=== PATIENT | male | born 1955 | race Hispanic/Latino ===

== ENCOUNTER 2017-07-12 07:53 | Emergency (ER) | payer BC, MEDICARE ==
[2017-07-12] MEDS ORDERED: ACETAMINOPHEN 325 MG TAB ONE (08:35)
[2017-07-12 08:39] LABS: BASOPHILS % (AUTO) 0.5 % (0.0-5.0); EOSINOPHILS % (AUTO) 0.6 % (0.0-8.0); HEMATOCRIT 26.2 % (42-54); LYMPHOCYTES % (AUTO) 11.1 % (21.0-51.0); MEAN CORPUSCULAR HEMOGLOBIN 30.8 pg (27.0-33.0); MEAN CORPUSCULAR HGB CONC 32.8 g/dL (32.0-36.0); MEAN CORPUSCULAR VOLUME 93.8 fL (79-99); MONOCYTES % (AUTO) 14.1 % (3.0-13.0); NEUTROPHILS % (AUTO) 73.7 % (40.0-77.0); NUCLEATED RED BLOOD CELLS 0.1 % (0.0-0.19); PLATELET COUNT (AUTO) 303 K/uL (130-400); RED BLOOD CELL COUNT(AUTO) 2.79 MIL/uL (4.50-6.20); RED CELL DISTRIBUTION WIDTH 15.2 % (11.0-15.5); WHITE BLOOD COUNT (AUTO) 16.3 K/uL (4.8-10.8)
[2017-07-12 08:50] LABS: RAPID GROUP A STREP NEGATIVE (NEGATIVE)
[2017-07-12 08:52] LABS: INR 1.01 (0.85-1.15); PARTIAL THROMBOPLASTIN TIME 33.2 SEC (26.3-35.5); PROTHROMBIN TIME 10.6 SEC (9.6-11.6)
[2017-07-12 09:08] LABS: AMPHET/METH SCREEN,URINE NEGATIVE (NEGATIVE); BARBITURATE SCREEN, URINE NEGATIVE (NEGATIVE); BENZODIAZEPINES SCREEN,URINE NEGATIVE (NEGATIVE); CANNABINOID SCREEN,URINE NEGATIVE (NEGATIVE); COCAINE SCREEN,URINE NEGATIVE (NEGATIVE); OPIATE SCREEN,URINE NEGATIVE (NEGATIVE); PHENCYCLIDINE SCREEN,URINE NEGATIVE (NEGATIVE)
[2017-07-12] MEDS ORDERED: SODIUM CHLORIDE 0.9% 1000ML 1,000 ML IV ONE ×2 (09:15→11:44)
[2017-07-12 09:23] LABS: BILIRUBIN,TOTAL 0.7 mg/dL (0.2-1.0); CREATININE 4.4 mg/dL (0.5-1.5); POTASSIUM 5.7 mmol/L (3.5-5.1); TOTAL PROTEIN, SERUM 7.5 g/dL (6.0-8.3)
[2017-07-12 09:33] LABS: B-TYPE NATRIURETIC PEPTIDE 184 pg/mL (0-100)
[2017-07-12] MEDS ORDERED: MEROPENEM 1 GM VIAL ONE (12:45)
== END 2017-07-12 17:06 | disposition short-term general hospital (02) ==
LOC: EDH 07:53
DX: M48.061 Spinal stenosis, lumbar region without neurogenic claudication (principal); G95.29 Other cord compression; R53.81 Other malaise; M54.5 Low back pain; M79.606 Pain in leg, unspecified; I25.10 Atherosclerotic heart disease of native coronary artery without angina pectoris; I11.0 Hypertensive heart disease with heart failure; I50.9 Heart failure, unspecified; Z95.1 Presence of aortocoronary bypass graft
CPT/HCPCS: 36415; 70450; 71045; 72141; 72146; 72148; 80053; 80305; 80339; 83605 ×2; 83880; 84484; 85025; 85610; 85730; 86850; 86900; 86901; 87040; 87804 ×2; 87880; 93005; 96361; 96374; 99291; J2185; J7030 ×2